=== PATIENT | female | born 1965 | race Caucasian/White ===

== ENCOUNTER 2025-01-08 05:00 | Outpatient (CLI) | payer OTHER, SELFPAY | END 2025-01-08 05:01 | disposition home or self-care (01) | LOC: SPT 02-01 09:17 | PROVIDERS: Visit Provider Podiatrist Foot & Ankle Surgery | DX: Z46.89 Encounter for fitting and adjustment of other specified devices (principal); S82.62XD Displaced fracture of lateral malleolus of left fibula, subsequent encounter for closed fracture with routine healing; S96.912D Strain of unspecified muscle and tendon at ankle and foot level, left foot, subsequent encounter; X58.XXXD Exposure to other specified factors, subsequent encounter | CPT/HCPCS: L4361 ==

== ENCOUNTER 2025-01-25 12:28 | Emergency (ER) | payer OTHER, SELFPAY ==
[2025-01-25 12:36] VITALS: BP 127/83; PULSE 91; RESP 20; TEMP 36.8; O2SAT 96
--- NOTE | 2025-01-25 12:38 | XR_ITS ---
WS: [id number] XR ankle LT min 3V* [id number] REASON FOR EXAM: pain FINDINGS: Soft tissue swelling over the lateral malleolus. Subtle fragmentation and irregularity of the cortex of the lateral malleolus. Deformity of the medial malleolar apex which appears to be an old healed injury. XR/XR ankle LT min 3V* [id number] IMPRESSION: Probable minimally displaced avulsion injury of the lateral malleolar apex.
--- NOTE | 2025-01-25 13:16 | XR_ITS ---
WS: [id number] XR foot LT min 3V* [id number] REASON FOR EXAM: injury FINDINGS: No acute fracture. Joint spaces of the forefoot, midfoot, and in the subtalar joint are intact and well preserved. Small anterior and posterior calcaneal enthesophytes. XR/XR foot LT min 3V* [id number] IMPRESSION: No acute bone or joint abnormality.
--- NOTE | 2025-01-25 13:17 | W.ED.LOWEXIN ---
HPI - Extremity Injury (Lower) General: Chief Complaint: Extremity Injury, Lower Stated Complaint: fall, L ankle pain Time Seen by Provider: 01/25/25 13:14 Source: patient Mode of arrival: wheelchair Limitations: no limitations History of Present Illness: Patient is a nice 59-year-old female presents today for evaluation of a left ankle injury that she sustained earlier today when she accidentally stepped in a pothole in a parking lot and twisted it. She is complaining of pain and edema to the lateral aspect of her ankle. She feels like pain is now radiating down into her left foot. She does states she is able to hobble on the ankle. No other injuries or complaints at this time. MD complaint: ankle injury and foot injury Onset (ago): hour(s) Injury: Left: ankle and foot Type of Injury: inversion Place: street/outdoors Severity: moderate Relieving factors: immobilization Exacerbating factors: weight bearing, movement and palpation Context: walking Associated symptoms: Reports no associated symptoms Other symptoms: none Related Data Allergies Allergy/AdvReac Type Severity Reaction Status Date / Time No Known Allergies Allergy Verified 01/25/25 12:35 Review of Systems Musc: Reports: extremity pain (L foot), joint pain (L ankle) and joint swelling (L ankle) Neuro: Reports: difficulty walking (secondary to L foot/ankle pain); Denies: numbness in extremities, weakness in extremities or sensory changes Physical Exam Const: COMMON NORMALS: no acute distress, average body habitus, no limitations, healthy appearing, alert and well nourished GENERAL APPEARANCE: cooperative Extremity: COMMON NORMALS: capillary refill normal GENERAL: Yes normal exam except as noted LEFT LOWER EXTREMITY: Yes ankle joint Left ankle: Yes inspection (edema lateral L ankle), Yes palpation (TTP/edema overlying lateral malleolus) and Yes neurovascular exam (normal) and Yes foot & digits (mild tenderness dorsolateral L foot) Left foot and digits: Yes ROM (normal) and Yes neurovascular exam (normal) Neuro: COMMON NORMALS: moves all extremities, no focal motor deficits and no sensory deficits noted SENSORIUM/ORIENTATION: Yes alert Course Vital Signs: Vital signs: Vital Signs Temperature 98.3 F 01/25/25 12:36 Pulse Rate 77 01/25/25 13:45 Respiratory Rate 18 01/25/25 13:45 Blood Pressure 133/76 01/25/25 13:45 Pulse Oximetry 94 01/25/25 13:45 Oxygen Delivery Me thod Room Air 01/25/25 12:36 MDM - Extremity Injury (Lower) Medical Decision Making Patient here for an inversion ankle injury earlier today. XRs of foot/ankle obtained and were personally interpretated by myself as well as radiology and shows a very small avulsion fx off the tip of her lateral malleolus. Patient will be splinted/given crutches and will place a case management referral to have her follow up with podiatry. Differential Diagnosis Likely ankle sprain and strain and ankle fracture Medical Records I reviewed the patient's medical records. Lab Data Radiology Impressions Ankle X-Ray 01/25/25 12:38 IMPRESSION: Probable minimally displaced avulsion injury of the lateral malleolar apex. Foot X-Ray 01/25/25 13:16 IMPRESSION: No acute bone or joint abnormality. All radiology interpretation(s) finalized by discharge Discharge Plan Discharge Patient Disposition: Home Clinical Impression: Avulsion fracture of lateral malleolus Qualifiers: Encounter type: initial encounter Fracture type: closed Laterality: left Qualified Code(s): S82.62XA - Displaced fracture of lateral malleolus of left fibula, initial encounter for closed fracture Condition: Stable Discharge Orders: Discharge ED (Routine); Ordered 01/25/25 Ordered By: Aleshia Marin Patient Instructions: Ankle Fracture (DC), Patient Portal & [place] Instructions Activity Restrictions/Additional Instructions: As we discussed, you may ice and elevate the extremity to help with swelling. You may take [id number] Ibuprofen and Tylenol to help with discomfort. You were provided crutches and I would like you to be nonweightbearing until told otherwise by podiatry. Case management referral has been placed to get you an appointment with podiatry. You should hear from them this week. Stand Alone Forms: Work/School Release Print Language: [place] Coding Level of Care Code ED [employer] for [facility]
[2025-01-25 13:45] VITALS: BP 133/76; PULSE 77; RESP 18; O2SAT 94
== END 2025-01-25 13:46 | disposition home or self-care (01) ==
PROVIDERS: Emergency Provider Physician Assistant
DX: S82.62XA Displaced fracture of lateral malleolus of left fibula, initial encounter for closed fracture (principal); W18.42XA Slipping, tripping and stumbling without falling due to stepping into hole or opening, initial encounter
CPT/HCPCS: 73610; 73630; 99283

== ENCOUNTER → 2025-02-15 11:26 | Outpatient (BNVA) | payer OTHER, SELFPAY | PROVIDERS: Visit Provider Podiatrist Foot & Ankle Surgery | DX: S82.62XA Displaced fracture of lateral malleolus of left fibula, initial encounter for closed fracture (principal); X58.XXXA Exposure to other specified factors, initial encounter | CPT/HCPCS: 73610 ==